=== PATIENT | female | born 1965 | race African-American/Black ===

== ENCOUNTER 2016-06-10 19:55 | Emergency (ER) ==
[2016-06-10] MEDS ORDERED: DECADRON 4 MG/ML SDV IM STA (19:56)
[2016-06-10] MEDS ORDERED: ADRENALIN 1:1000 SDV IM STA (19:56)
[2016-06-10] MEDS ORDERED: BENADRYL IM STA (19:56)
[2016-06-10 20:04] VITALS: BP 141/70; TEMP 97.9; BMI 32.7
[2016-06-10] MEDS ORDERED: EPINEPHRINE 1:1,000 AMP ONE (20:11)
--- NOTE | 2016-06-10 20:41 | ED.PDOC ---
General ED Provider: Dr. BETH RICH-ER Chief Complaint: Allergic Reaction Stated Complaint: my lip is beginning to swell--its happened before Time Seen by Physician: 20:00 Mode of Arrival: Walk-In Information Source: Patient Exam Limitations: No limitations Primary Care Provider: KRISTIN MENA Nursing and Triage Documentation Reviewed and Agree: Yes Skin Complaint Exam - Skin/Soft Tissue Complaint/Exam Onset/Duration: 2hrs Symptoms Are: Still present Timing: Constant Initial Severity: Mild Current Severity: Mild Location: left upper lip Character: Reports: Swelling, Raised. Denies: Redness, Painful Aggravating: Reports: None Alleviating: Reports: None Associated Signs and Symptoms: Denies: Fever, Chills, Itching, Drainage, Bruising, Tenderness, Red streaks, Joint swelling Related History: Reports: Similar episode Related Surgical History: Reports: None Recent Exposure to Others w/Similar Symptoms: No Joint Tenderness Present: No Differential Diagnoses: Other Review of Systems - Review Of Systems Constitutional: Reports: No symptoms Eyes: Reports: No symptoms Ears, Nose, Mouth, Throat: Reports: No symptoms Respiratory: Reports: No symptoms Cardiac: Reports: No symptoms GI: Reports: No symptoms : Reports: No symptoms Musculoskeletal: Reports: No symptoms Skin: Reports: No symptoms, Lumps (noted angioedema left upper lip) Neurological: Reports: No symptoms Endocrine: Reports: No symptoms Hematologic/Lymphatic: Reports: No symptoms All Other Systems: Reviewed and Negative Past Medical History - Past Medical History Endocrine: Reports: Unknown Cardiovascular: Reports: Unknown Respiratory: Reports: Unknown Hematological: Reports: Unknown Gastrointestinal: Reports: Unknown Genitourinary: Reports: Unknown Neuro/Psych: Reports: Unknown Musculoskeletal: Reports: Unknown Cancer: Reports: Unknown Last Menstrual Period: LAST WEEK - Surgical History General Surgical History: Reports: Unknown - Family History Family History: Reports: Unknown - Social History Smoking Status: Never smoker Hx Substance Use: No Alcohol Screening: None Lives: With family - Immunizations Tetanus Shot up to Date: (UNKNOWN) Physical Exam - Physical Exam Appearance: Well-appearing, No pain distress, Well-nourished Eyes: CHAYA, EOMI, Conjunctiva clear ENT: Ears normal, Nose normal, Oropharynx normal (noted left upper lip swollen) Neck: Supple Respiratory: Airway patent, Breath sounds clear, Breath sounds equal, Respirations nonlabored Cardiovascular: RRR, Pulses normal, No rub, No murmur GI/: Soft Musculoskeletal: Normal strength Skin: Warm, Dry, Normal color Neurological: Sensation intact, Motor intact, Reflexes intact, Cranial nerves intact, Alert, Oriented Psychiatric: Affect appropriate, Mood appropriate Re-Evaluation - Re-Evaluation Time of Re-Evaluation: 20:41 Status: Improved Vital Signs Stable: Yes Pain Level: 0 Appearance: NAD Lungs: Clear Skin: Warm and Dry Neuro: Alert and Oriented X3 CV: RRR Critical Care Note - Critical Care Note Total Time (mins): 0 Course - Course Orders, Labs, Meds: Orders Category Date Time Status Dexamethasone 4 mg/ml Inj [Decadron 4 mg/ml Sdv] MEDS 06/10/16 19:56 Discontinued 8 mg IM ONCE STA Diphenhydramine Inj [Benadryl] MEDS 06/10/16 19:56 Discontinued 50 mg IM ONCE STA Epinephrine Amp [Epinephrine 1:1,000 Amp] MEDS 06/10/16 20:11 Discontinued 1 mg .ROUTE .STK-MED ONE Epinephrine [Adrenalin 1:1000 Sdv] MEDS 06/10/16 19:56 Discontinued 0.3 mg IM ONCE STA Medications Discontinued Medications Generic Name Dose Route Start Last Admin Trade Name Freq PRN Reason Stop Dose Admin Dexamethasone Sodium Phosphate 8 mg 06/10/16 19:56 06/10/16 20:16 Decadron 4 Mg/Ml Sdv IM 06/10/16 19:57 8 mg ONCE STA Administration Diphenhydramine HCl 50 mg 06/10/16 19:56 06/10/16 20:17 Benadryl IM 06/10/16 19:57 50 mg ONCE STA Administration Epinephrine HCl 0.3 mg 06/10/16 19:56 06/10/16 20:21 Adrenalin 1:1000 Sdv IM 06/10/16 19:57 0.3 mg ONCE STA Administration Vital Signs: Temp Pulse Resp BP Pulse Ox 06/10/16 19:56 97.9 F 78 18 141/70 H 100 Departure - Departure Time of Disposition: 20:41 Disposition: HOME SELF-CARE Discharge Problem: Angioedema Qualifiers: Encounter type: initial encounter Qualifier Code: (T78.3XXA) Angioneurotic edema, initial encounter Instructions: Angioedema (ED) Condition: Good Pt referred to PMD for follow-up: Yes Additional Instructions: anish 180mg bid #14---decadron 4mg bid x 2 days then 2mg bid x 2 days--watch blood sugars---f/u with pcp--consider changing leila inhibitor to something else-- keep ice on the lip until swelling Allergies/Adverse Reactions: Allergies erythromycin base Adverse Reaction (Verified 06/10/16 20:05) Itching levofloxacin [From Levaquin] Adverse Reaction (Verified 06/10/16 20:05) Hives Penicillins Adverse Reaction (Verified 06/10/16 20:05) Itching Home Medications: Ambulatory Orders Desogestrel-Ethinyl Estradiol [Juleber 28 Day Tablet] 1 each PO DAILY 06/10/16 Hydroxyzine Pamoate [Vistaril] 50 mg PO BEDTIME 06/10/16 Levothyroxine Sodium [Synthroid] 100 mcg PO QDAC 06/10/16 Lisinopril/Hydrochlorothiazide [Lisinopril-Hctz 20-25 mg Tab] 1 tab PO DAILY Naltrexone HCl/Bupropion HCl [Contrave ER 8-90 mg Tablet] 1 each PO BID Ursodiol 300 mg PO BID 06/10/16 Disposition Discussed With: Patient, Family
== END 2016-06-10 21:01 | disposition home or self-care (01) ==
LOC: ED 19:55
DX: T78.3XXA Angioneurotic edema, initial encounter (principal)
CPT/HCPCS: 96372; 99283